=== PATIENT | female | born 1995 | race Caucasian/White ===

== ENCOUNTER 2018-12-16 10:29 | Emergency (ER) | payer OTHER ==
[2018-12-16 10:49] VITALS: TEMP 97.7
[2018-12-16] MEDS ORDERED: Sodium Chloride 0.9% 1,000 ML IV STA (10:52)
[2018-12-16 11:11] LABS: URINE BILIRUBIN NEGATIVE (NEGATIVE); URINE BLOOD NEGATIVE (NEGATIVE); URINE GLUCOSE (UA) NEGATIVE (NEGATIVE); URINE LEUKOCYTE ESTERASE NEGATIVE Leu/uL (NEGATIVE); URINE PROTEIN NEGATIVE mg/dL (<30 mg/dL); URINE UROBILINOGEN 0.2 E.U./dL (<1 E.U./dL)
[2018-12-16 11:13] LABS: URINE APPEARANCE CLEAR (CLEAR); URINE COLOR YELLOW (YELLOW)
[2018-12-16 11:43] LABS: BASO # 0.02 K/mm3 (0.0-2.0); BASO % 0.2 % (0.0-3.0); EOS # 0.1 (0.0-0.7); EOS % 1.6 % (1.5-5.0); HEMOGLOBIN 12.5 g/dL (12.0-16.0); LYMPH # 1.9 (1.2-3.4); LYMPH % 21.7 % (22.0-35.0); MEAN CELL VOLUME 84.6 fl (80.0-105.0); MEAN CORPUSCULAR HEMOGLOBIN 28.3 pg (25.0-35.0); MEAN CORPUSCULAR HGB CONC 33.4 g/dl (31.0-37.0); MEAN PLATELET VOLUME 9.9 fl (7.0-11.0); MONO # 0.4 (0.1-0.6); MONO % 4.1 % (1.0-6.0); RBC 4.42 10^6/uL (3.5-6.1); RED CELL DISTRIBUTION WIDTH 13.6 % (11.5-14.5); WHITE BLOOD COUNT 8.6 10^3/uL (4.5-11.0)
[2018-12-16 11:50] LABS: ALB/GLOB RATIO 1.2 (1.1-1.8); ALBUMIN 3.7 g/dL (3.0-4.8); ALT/SGPT 10 U/L (7-56); AST/SGOT 17 U/L (14-36); BLOOD UREA NITROGEN 11 mg/dL (7-21); CALCIUM 9.3 mg/dL (8.4-10.5); GFR NON-AFRICAN AMERICAN > 60; LIPASE 59 U/L (23-300)
--- NOTE | 2018-12-16 11:51 | ED PDOC ---
Arrival/HPI - General Chief Complaint: GI Problem Time Seen by Provider: 12/16/18 10:29 Historian: Patient - History of Present Illness Narrative History of Present Illness (Text): 12/16/18 11:41 23-year-old female G4, P1, A2 presents today with lower abdominal pain and back pain that started 1 hour prior to arrival. Patient denies vaginal bleeding or vaginal discharge. She denies urinary symptoms. No chest pain or shortness of breath. Patient describes the pain as a achy crampy sensation patient denies dizziness or weakness. Patient states she is had an episode of vomiting. Patient denies vaginal bleeding or vaga Patient denies urinary symptoms. pt states she took tylenol prior to arrival. Past Medical History - Provider Review Nursing Documentation Reviewed: Yes - Travel History Have you recently traveled outside [place] w/in the past 3 mons?: No - Psychiatric Hx Substance Use: No - Surgical History Hx Section: Yes Family/Social History - Physician Review Nursing Documentation Reviewed: Yes Family/Social History: Unknown Family HX Smoking Status: Former Smoker Hx Alcohol Use: No Hx Substance Use: No Allergies/Home Meds Allergies/Adverse Reactions: Allergies No Known Allergies Allergy (Verified 12/16/18 10:49) Home Medications: Home Meds Medication Instructions Recorded Confirmed Pnv with Ca,No.72/Iron/FA [Pnv 1 tab PO DAILY 12/16/18 12/16/18 Plus Multivit Tab] Review of Systems - Review of Systems Constitutional: absent: Fatigue, Fevers Respiratory: absent: SOB, Cough Cardiovascular: absent: Chest Pain, Palpitations Gastrointestinal: Abdominal Pain, Nausea, Vomiting. absent: Constipation, Appetite Changes Genitourinary Female: absent: Dysuria, Frequency, Hematuria, Vaginal Bleeding, Vaginal Discharge Musculoskeletal: Back Pain. absent: Arthralgias, Neck Pain Skin: absent: Rash, Pruritis Neurological: absent: Headache, Dizziness Psychiatric: absent: Anxiety, Depression Physical Exam Vital Signs Reviewed: Yes Vital Signs Temp Pulse Resp BP Pulse Ox 12/16/18 10:46 97.7 F 95 H 17 134/41 L 98 Temperature: Afebrile Blood Pressure: Normal Pulse: Regular Respiratory Rate: Normal Appearance: Positive for: Well-Appearing, Non-Toxic, Comfortable Pain Distress: None Mental Status: Positive for: Alert and Oriented X 3 - Systems Exam Head: Present: Atraumatic Mouth: Present: Moist Mucous Membranes Neck: Present: Normal Range of Motion Respiratory/Chest: Present: Clear to Auscultation, Good Air Exchange. No: Respiratory Distress, Accessory Muscle Use Cardiovascular: Present: Regular Rate and Rhythm, Normal S1, S2. No: Murmurs Abdomen: Present: Tenderness (+ lower abdominal tenderness, suprapubic tenderness). No: Distention, Peritoneal Signs, Rebound, Guarding Back: Present: Normal Inspection. No: CVA Tenderness, Midline Tenderness, Paraspinal Tenderness Upper Extremity: Present: Normal ROM Lower Extremity: Present: Normal ROM Neurological: Present: GCS=15, Speech Normal Skin: Present: Warm, Dry, Normal Color. No: Rashes Psychiatric: Present: Alert, Oriented x 3 Medical Decision Making ED Course and Treatment: 12/16/18 11:53 Patient is nontoxic well appearing in no distress. vital signs are stable. CBC: wnl CMP: wnl Beta hC TYPE AND SCREEN: Urinalysis: wnl Ultrasound: Findings: There is a single living fetus in variable presentation. Anterior placenta. The placenta does not appear previa. The right ovary measures approximately 3.3 x 1.9 x 2.8 cm. The left ovary is not seen. Cervix length measures approximately 5.2 cm. Measurements and calculations: Fetus has a composite sonographic age of 12 weeks 2 days. This calculation is based on the biparietal diameter, head circumference, abdominal circumference, and femur length. Estimated heart rate 158 beats per min. Impression: Single living fetus with a composite sonographic age of 12 weeks 2 days. Estimated heart rate 158 beats per min. Advise an anomaly screen at 16-18 weeks gestational age. Discussed all the results the patient. advised f/u with the splicing machine operator within the next 2 days. advised immediate return if symptoms worsen,persist or if new symptoms develop. Impression: threatened miscarriage Tylenol every 4 hours as needed for pain Increase fluids Diclegis take as directed for nausea/vomiting Followup with the hospital supervisor within the next 2 days Return immediately if symptoms worsen persist or if new symptoms develop: High fevers, heavy bleeding, severe abdominal pain, vomiting, diarrhea, dizziness or weakness or any other concerning symptoms develop. Take vitamins daily - Lab Interpretations Lab Results: Urine Color Yellow (YELLOW) 12/16/18 11:00 Urine Appearance Clear (CLEAR) 12/16/18 11:00 Urine pH 6.0 (4.7-8.0) 12/16/18 11:00 Ur Specific [place] 1.025 (1.005-1.035) 12/16/18 11:00 Urine Protein Negative mg/dL (<30 mg/dL) 12/16/18 11:00 Urine Glucose (UA) Negative mg/dL (NEGATIVE) 12/16/18 11:00 Urine Ketones Negative mg/dL (NEGATIVE) 12/16/18 11:00 Urine Blood Negative (NEGATIVE) 12/16/18 11:00 Urine Nitrate Negative (NEGATIVE) 12/16/18 11:00 Urine Bilirubin Negative (NEGATIVE) 12/16/18 11:00 Urine Urobilinogen 0.2 E.U./dL (<1 E.U./dL) 12/16/18 11:00 Ur Leukocyte Esterase Negative [place]/uL (NEGATIVE) 12/16/18 11:00 - RAD Interpretation Radiology Orders: 12/16/18 11:05 TRANSVAGINAL [US] Stat - Medication Orders Current Medication Orders: Sodium Chloride (Sodium Chloride 0.9%) 1,000 mls @ 999 mls/hr IV .Q1H1M STA Stop: 12/16/18 11:52 Last Admin: 12/16/18 11:09 Dose: 999 mls/hr eMAR Start Stop Document 12/16/18 11:09 EQ (Rec: 12/16/18 11:09 EQ [id number]) Intravenous Solution Start Date 12/16/18 Start Time 11:09 Disposition/Present on Arrival - Present on Arrival Any Indicators Present on Arrival: No History of DVT/PE: No History of Uncontrolled Diabetes: No Urinary Catheter: No History of Decub. Ulcer: No History Surgical Site Infection Following: None - Disposition Have Diagnosis and Disposition been Completed?: Yes Diagnosis: Threatened , Abdominal pain during Disposition: HOME/ ROUTINE Disposition Time: 13:00 Patient Plan: Discharge Condition: GOOD Discharge Instructions (ExitCare): Nausea and Vomiting of (DC), Morning Sickness (DC), Threatened Miscarriage Additional Instructions: Tylenol every 4 hours as needed for pain Increase fluids Diclegis take as directed for nausea/vomiting Followup with the hospital supervisor within the next 2 days Return immediately if symptoms worsen persist or if new symptoms develop: High fevers, heavy bleeding, severe abdominal pain, vomiting, diarrhea, dizziness or weakness or any other concerning symptoms develop. Take vitamins daily Prescriptions: Doxylamine/Pyridoxine HCl (B6) [Janes Miner 10-10 mg Tablet] 2 tab PO HS #10 tab Referrals: Joselin Chan MD [Staff Provider] - Follow up with primary [facility] [Outside] - [facility] [Outside] - Follow up with primary Forms: [employer] (Pashto), WORK NOTE
--- NOTE | 2018-12-16 13:07 | US ---
Indication: pain/ LMP oct 12 Comparison: None available Technique: Real-time ultrasound was performed through the pelvis. Findings: There is a single living fetus in variable presentation. Anterior placenta. The placenta does not appear previa. The right ovary measures approximately 3.3 x 1.9 x 2.8 cm. The left ovary is not seen. Cervix length measures approximately 5.2 cm. Measurements and calculations: Fetus has a composite sonographic age of 12 weeks 2 days. This calculation is based on the biparietal diameter, head circumference, abdominal circumference, and femur length. Estimated heart rate 158 beats per min. Impression: Single living fetus with a composite sonographic age of 12 weeks 2 days. Estimated heart rate 158 beats per min. Advise an anomaly screen at 16-18 weeks gestational age.
[2018-12-16 13:59] VITALS: BP 124/78; PULSE 90; RESP 18; O2SAT 97
== END 2018-12-16 14:12 | disposition home or self-care (01) ==
LOC: ED 10:29
DX: O20.0 Threatened abortion (principal); R10.9 Unspecified abdominal pain; Z3A.12 12 weeks gestation of pregnancy
CPT/HCPCS: 76815; 80053; 81003; 81025; 83690; 84702; 85025; 86850; 86900; 87086; 99284; J7030